=== PATIENT | male | born 1990 | race Two or more races ===

== ENCOUNTER 2020-08-02 17:33 | Inpatient (IN) | payer BC, OTHER ==
[~2020-08-02] VITALS: Ht 167.6 cm; Wt 74.9 kg
--- NOTE | 2020-08-02 18:05 | NUR ---
assumed care of pt. attempted to enter room to assess pt. pt not in room
--- NOTE | 2020-08-02 18:07 | NUR ---
pt not in room
--- NOTE | 2020-08-02 18:15 | NUR ---
pt here c/o L knee pain after playingh soccer today. pt states that after going home, his pain became worse and was not relieved with Tylenol. pt is ambulatory with pain. denies injury or fall. no obvious deformity. CMS of LLE intact pt Ginny (age 21) at bedside. pt speaks some Moroccan, pt fluent in both Moroccan at Turkish. programming equipment operator services offered. pt declines at this time and states that he wants his to traslate for him. pt ans at bedside aware that programming equipment operator services available at all times
--- NOTE | 2020-08-02 18:28 | NUR ---
LLE elevated and ice pack applied for comfort
--- NOTE | 2020-08-02 18:55 | NUR ---
Dr. Cherry has been to bedside for recheck report to Amy FITCH
--- NOTE | 2020-08-02 18:56 | NUR ---
REPORT FROM ARIELLA FITCH
[2020-08-02] MEDS ORDERED: MORPHINE SULFATE 4 MG/ML, 1ML IVPush PRN (19:00)
[2020-08-02] MEDS ORDERED: SODIUM CHLORIDE FLUSH 10ML SYR IVF ONE (19:00)
[2020-08-02 19:12] LABS: BASOPHILS % (AUTO) 1 % (0-1); EOSINOPHILS % (AUTO) 0 % (1-7); LYMPHOCYTES % (AUTO) 11 % (22-44); MEAN CORPUSCULAR HEMOGLOBIN 31.1 pg (27.5-34.5); MEAN CORPUSCULAR HGB CONC 34.6 g/dL (33.2-36.2); MEAN PLATELET VOLUME 7.2 fL (7.4-10.4); MONOCYTES % (AUTO) 7 % (2-9); NEUTROPHILS % (AUTO) 82 % (42-75); PLATELET COUNT 275 x10^3/uL (130-400); RED BLOOD COUNT 4.99 x10^6/uL (4.38-5.82); RED CELL DISTRIBUTION WIDTH 13.4 % (9.4-14.8)
[2020-08-02] MEDS ORDERED: MORPHINE SULFATE 4 MG/ML, 1ML ONE (19:16)
[2020-08-02 19:22] LABS: ALBUMIN 5.5 g/dL (3.4-5.0); ANION GAP 5 mmol/L (5-15); CALCIUM 9.2 mg/dL (8.5-10.1); CHLORIDE 107 mmol/L (98-107); CREATININE 1.01 mg/dL (0.7-1.3)
--- NOTE | 2020-08-02 19:26 | NUR ---
ORTHO DR BELLO AT BEDSIDE
[2020-08-02] MEDS ORDERED: OMNIPAQUE 350 MG/ML, 100ML BOTTLE ONE (19:30)
--- NOTE | 2020-08-02 19:33 | NUR ---
PT TO IMAGING
[2020-08-02 19:36] LABS: CREATINE KINASE, TOTAL 2523 U/L (39-308)
--- NOTE | 2020-08-02 20:43 | NUR ---
REPORT GIVEN TO ROSITA FITCH IN OR
[2020-08-02] MEDS ORDERED: MIDAZOLAM 1 MG/ML, 2ML ONE (20:51)
[2020-08-02] MEDS ORDERED: FENTANYL PF 250 MCG/5ML ONE (20:51)
[2020-08-02] MEDS ORDERED: PROPOFOL 10 MG/ML, 20ML ONE (20:55)
[2020-08-02] MEDS ORDERED: DEXAMETHASONE 4 MG/ML, 1ML ONE ×2 (20:55)
[2020-08-02] MEDS ORDERED: ROCURONIUM 10 MG/ML,10ML ONE (20:59)
[2020-08-02] MEDS ORDERED: ONDANSETRON 2MG/ML, 2ML ONE (20:59)
[2020-08-02] MEDS ORDERED: morphine SULFATE 10 MG/ML, 1ML IVPush PRN (21:00)
[2020-08-02] MEDS: CEFAZOLIN PMX 1GM/50ML 50 ML IVPB SCH (21:00)
[2020-08-02] MEDS ORDERED: ONDANSETRON 2MG/ML, 2ML IVPush PRN ×2 (21:00→22:00)
[2020-08-02] MEDS: SODIUM CHLORIDE FLUSH 10ML SYR IVF SCH (21:00)
[2020-08-02] MEDS ORDERED: DIPHENHYDRAMINE 50 MG CAPSULE PO PRN (21:00)
[2020-08-02] MEDS ORDERED: ACETAMINOPHEN 325 MG TABLET PO PRN (21:00)
[2020-08-02] MEDS ORDERED: HYDROcodone/APAP 5/325 TABLET PO PRN (21:00)
[2020-08-02] MEDS ORDERED: CEFAZOLIN 1,000 MG ONE ×2 (21:06)
[2020-08-02] MEDS ORDERED: BUPIVACAINE/PF 0.25% ONE (21:10)
[2020-08-02] MEDS ORDERED: EPINEPHRINE 1 MG/ML, 1ML ONE (21:10)
[2020-08-02] MEDS ORDERED: BUPIVACAINE/PF 0.25% INFIL ONE (21:49)
[2020-08-02] MEDS ORDERED: EPINEPHRINE 1 MG/ML, 1ML INFIL ONE (21:52)
[2020-08-02] MEDS ORDERED: ALBUTEROL SULFATE 2.5 MG/3 ML NPPB PRN (22:00)
[2020-08-02] MEDS ORDERED: LABETALOL 5MG/ML, 20ML IV PRN (22:00)
[2020-08-02] MEDS ORDERED: DIAZEPAM 5 MG/ML, 2ML IVPush PRN (22:00)
[2020-08-02] MEDS ORDERED: PROMETHAZINE 25 MG/ML, 1ML IVPush PRN (22:00)
[2020-08-02] MEDS ORDERED: EPHEDRINE 50 MG/ML, 1ML IVPush PRN (22:00)
[2020-08-02] MEDS ORDERED: DIPHENHYDRAMINE 50 MG/ML, 1ML IVPush PRN ×2 (22:00)
[2020-08-02] MEDS ORDERED: PROMETHAZINE 12.5 MG SUPP PR PRN (22:00)
[2020-08-02] MEDS ORDERED: hydrALAzine 20 MG/ML, 1ML IV PRN (22:00)
[2020-08-02] MEDS ORDERED: MEPERIDINE/PF 25MG/0.5ML IVPush PRN (22:00)
[2020-08-02] MEDS ORDERED: OXYcodone 5 MG/5 ML ORAL.SOL UDC PO PRN (22:00)
[2020-08-02] MEDS ORDERED: HYDROmorphone 1 MG/ML, 1ML INJ IVPush PRN (22:00)
[2020-08-02] MEDS ORDERED: FENTANYL PF 100 MCG/2ML IV PRN (22:00)
[2020-08-02] MEDS ORDERED: MIDAZOLAM 1 MG/ML, 2ML IV PRN (22:00)
[2020-08-02] MEDS ORDERED: OXYcodone 5 MG/5 ML ORAL.SOL UDC ONE (22:20)
[2020-08-02 23:08] VITALS: BP 161/95
[2020-08-03 00:28] VITALS: BP 134/79
[2020-08-03] MEDS: KETOROLAC 30 MG/1 ML IVPush SCH ×3 (00:40→19:08)
[2020-08-03] MEDS: DOCUSATE 100 MG CAPSULE PO SCH ×3 (00:40→21:24)
[2020-08-03 04:24] VITALS: BP 103/54
[2020-08-03] MEDS: CEFAZOLIN PMX 1GM/50ML 50 ML IVPB SCH (04:36)
[2020-08-03 08:06] VITALS: BP 114/65
[2020-08-03] MEDS: SODIUM CHLORIDE FLUSH 10ML SYR IVF SCH ×2 (10:03→21:00)
[2020-08-03 13:41] VITALS: BP 103/55
[2020-08-03] MEDS ORDERED: KETOROLAC 30 MG/1 ML ONE (19:06)
[2020-08-03 19:35] VITALS: BP 117/72
[2020-08-03] MEDS: OXYcodone/APAP 5/325MG TABLET PO PRN (22:26)
[2020-08-04 01:22] VITALS: BP 96/59
[2020-08-04 07:46] VITALS: BP 112/68
[2020-08-04] MEDS: DOCUSATE 100 MG CAPSULE PO SCH ×2 (07:54→22:41)
[2020-08-04] MEDS: SODIUM CHLORIDE FLUSH 10ML SYR IVF SCH ×2 (07:55→22:41)
[2020-08-04] MEDS ORDERED: CHLORHEXIDINE 15 ML UDC PO ONE (11:00)
[2020-08-04] MEDS ORDERED: DIAZEPAM 5 MG/ML, 2ML IVPush PRN (12:00)
[2020-08-04] MEDS ORDERED: OXYcodone 5 MG/5 ML ORAL.SOL UDC PO PRN (12:00)
[2020-08-04] MEDS ORDERED: ACETAMINOPHEN 325 MG TABLET PO PRN (12:00)
[2020-08-04] MEDS ORDERED: FENTANYL PF 100 MCG/2ML IV PRN (12:00)
[2020-08-04] MEDS ORDERED: PROMETHAZINE 25 MG/ML, 1ML IVPush PRN (12:00)
[2020-08-04] MEDS ORDERED: HYDROmorphone 1 MG/ML, 1ML INJ IVPush PRN (12:00)
[2020-08-04] MEDS ORDERED: ONDANSETRON 2MG/ML, 2ML IVPush PRN (12:00)
[2020-08-04] MEDS ORDERED: METHOCARBAMOL 1,000 MG in DEXTROSE 5% 100 ML IV PRN (12:00)
[2020-08-04] MEDS ORDERED: MEPERIDINE/PF 25MG/0.5ML IVPush PRN (12:00)
[2020-08-04] MEDS ORDERED: DIPHENHYDRAMINE 50 MG/ML, 1ML IVPush PRN (12:00)
[2020-08-04] MEDS ORDERED: BUPIVACAINE/PF 0.25% ONE (12:14)
[2020-08-04] MEDS ORDERED: EPINEPHRINE 1 MG/ML, 1ML ONE (12:14)
[2020-08-04] MEDS ORDERED: MIDAZOLAM 1 MG/ML, 2ML ONE (12:15)
[2020-08-04] MEDS ORDERED: FENTANYL PF 250 MCG/5ML ONE (12:15)
[2020-08-04] MEDS ORDERED: CEFAZOLIN 1,000 MG ONE ×2 (12:58)
[2020-08-04] MEDS ORDERED: ONDANSETRON 2MG/ML, 2ML ONE (12:58)
[2020-08-04] MEDS ORDERED: PROPOFOL 10 MG/ML, 20ML ONE (12:58)
[2020-08-04] MEDS ORDERED: OXYcodone 5 MG/5 ML ORAL.SOL UDC ONE (13:38)
[2020-08-04] MEDS ORDERED: ACETAMINOPHEN 650 MG/20.3 ML UDC ONE (13:59)
[2020-08-04] MEDS ORDERED: OXYC5CAP2 PO (16:07)
[2020-08-04] MEDS: OXYcodone/APAP 5/325MG TABLET PO PRN ×2 (18:13→23:00)
[2020-08-04 19:12] VITALS: BP 115/73
[2020-08-04 23:19] VITALS: BP 109/70
[2020-08-05 03:41] VITALS: BP 96/58
[2020-08-05 06:51] VITALS: BP 106/64
[2020-08-05] MEDS: SODIUM CHLORIDE FLUSH 10ML SYR IVF SCH (09:00)
[2020-08-05] MEDS: DOCUSATE 100 MG CAPSULE PO SCH (13:08)
[2020-08-05] MEDS: OXYcodone/APAP 5/325MG TABLET PO PRN (13:08)
== END 2020-08-05 13:35 | disposition home or self-care (01) | DRG 909 ==
LOC: ED 20:29 → EDIP 21:48 → 4NE 22:55 → DCLOUNGE 08-05 13:22
PROVIDERS: ADMIT Orthopaedic Surgery; ATTEND Orthopaedic Surgery
PROC: 0KNT0ZZ Release Left Lower Leg Muscle, Open Approach (ICD-10-PCS; 2020-08-02)
PROC: 0KNT0ZZ Release Left Lower Leg Muscle, Open Approach (ICD-10-PCS; 2020-08-02)
PROC: 0KDT0ZZ Extraction of Left Lower Leg Muscle, Open Approach (ICD-10-PCS; principal; 2020-08-04 12:15)
DX: T79.A22A Traumatic compartment syndrome of left lower extremity, initial encounter (principal); Z20.822 Contact with and (suspected) exposure to COVID-19; X58.XXXA Exposure to other specified factors, initial encounter; Y93.89 Activity, other specified; Y92.89 Other specified places as the place of occurrence of the external cause; Y99.8 Other external cause status
CPT/HCPCS: 36415; 80048; 82040; 82550; 85025; 87635; 96374; G0378; J0171; J0690; J1100; J1885; J2250; J2405; J2704; J3010; Q9967; J2270; J2800